=== PATIENT | female | born 1990 | race African-American/Black ===

== ENCOUNTER 2018-06-26 09:05 | Emergency (ER) | payer SELFPAY ==
[2018-06-26] MEDS ORDERED: Acetaminophen 325 MG TAB ONE (09:26)
[2018-06-26] MEDS ORDERED: Ibuprofen 200 MG TAB ONE (09:27)
--- NOTE | 2018-06-26 10:27 | RAD ---
LEFT GREAT TOE: Date: 06/26/18 HISTORY: Injury to toe. FINDINGS: There is an obliquely oriented interarticular fracture involving the lateral corner of the base of th e distal phalanx of the great toe. IMPRESSION: Nondisplaced obliquely oriented fracture of the lateral corner of the base of the distal phalanx of t he great toe. POS: BEL
== END 2018-06-26 10:31 | disposition home or self-care (01) ==
LOC: ERS 09:05
DX: S92.425A Nondisplaced fracture of distal phalanx of left great toe, initial encounter for closed fracture (principal); W22.01XA Walked into wall, initial encounter

== ENCOUNTER 2019-12-13 04:28 | Emergency (ER) | payer SELFPAY ==
[2019-12-13 04:56] LABS: Bilirubin Negative (Negative); Blood, Urine Negative (Negative); Clarity Clear (Clear); Glucose, Urine (Dipstick) Normal (Negative); Leukocyte Negative Leu/uL (Negative); Nitrite Negative (Negative); Protein, Urine (Dipstick) 10 mg/dL (Neg-Trace)
[2019-12-13 05:12] LABS: #Eosinphils 0.1 thou/uL (0.0-0.7); #Lymphocytes 2.2 thou/uL (1.20-3.40); #Monocytes 0.6 thou/uL (0.11-0.59); #Neutrophils 6.2 thou/uL (1.40-6.50); %Basophils 0.4 % (0.0-1.0); %Eosinophils 0.7 % (0.0-10.0); %Lymphocytes 24.2 % (21.0-51.0); %Monocytes 6.5 % (0.0-10.0); %Neutrophils 68.2 % (42.0-75.0); Hemoglobin 11.2 g/dL (12.0-16.0); Mean Corpuscular HGB CONC 33.1 g/dL (32.0-36.0); Mean Corpuscular Hemoglobin 28.2 pg (27.0-31.0); Mean Corpuscular Volume 85.4 fL (78.0-98.0); Platelet Count 208 thou/uL (130-400); RBC Distribution Width 12.3 % (11.5-14.5); Red Blood Cell (RBC) Count 3.98 mill/uL (4.20-5.40); White Blood Cell (WBC) Count 9.1 thou/uL (4.8-10.8)
[2019-12-13 05:35] LABS: ALT (SGPT) 18 U/L (8-55); AST (SGOT) 16 U/L (5-34); Albumin 3.7 g/dL (3.5-5.0); Alkaline Phosphatase 62 U/L (40-110); Anion Gap 9 mmol/L (10-20); BUN (Urea Nitrogen) 10 mg/dL (7.0-18.7); Bilirubin, Total 0.2 mg/dL (0.2-1.2); Calc. Creatinine Clearance 0 mL/min (70-130); Calcium 8.7 mg/dL (7.8-10.44); Carbon Dioxide 25 mmol/L (22-29); Chloride 106 mmol/L (98-107); Estimated GFR-MDRD Greater than 90; Glucose 96 mg/dL (70-105); Potassium 3.4 mmol/L (3.5-5.1); Protein, Total 6.7 g/dL (6.0-8.3); Sodium 137 mmol/L (136-145)
[2019-12-13 05:39] LABS: BHCG - Serum POSITIVE (NEGATIVE); Pregs Control Background? CLEAR/WHITE (CLR/WHITE); Pregs Control Bar Appear? YES (CONTROL BAR)
--- NOTE | 2019-12-13 07:54 | ULT ---
PRELIMINARY REPORT/[facility]/AFTER HOURS PROCEDURE COMPLETE OBSTETRICAL ULTRASOUND <14 WEEKS: CLINICAL HISTORY: Pelvic pain. Six weeks preg. See notes on last image. Thanks. TECHNIQUE: Transvaginal imaging of the maternal pelvis and a <14 week gestation with image documentation. COMPARISON: None provided. FINDINGS: GESTATION: A CRL of 5.7 mm corresponds to 6 weeks 3 days with a heartbeat of 115 bpm. UTERUS: Unremarkable. No myometrial mass. Measures 8.3 x 4.0 x 4.8 cm. CERVIX: Closed. Unremarkable. OVARIES: The LEFT side measures 3.3 x 2.0 x 2.4 cm and the RIGHT side measures 6.0 x 3.2 x 5.1 cm. T o 4.9 x 2.8 cm heterogeneous RIGHT ovarian mass is noted suggesting a dermoid. FREE FLUID: No free fluid. IMPRESSION: Single viable intrauterine . No acute abnormality. Suspected RIGHT adnexal dermoid. ELECTRONICALLY SIGNED BY: Jose Neil MD Dec 13, 2019 5:47:32 AM CDT This report is intended for review by the ordering physician only, in accordance of law. If you recei ve this report in error, please call [facility] at [phone]. FINAL REPORT BY DR [facility] AFTER HOURS STUDY ULTRASOUND TRANSVAGINAL DOPPLER DUPLEX: HISTORY: A 18-year-old female with first trimester pelvic pain. FINDINGS: 1. Live first trimester intrauterine gestation. 2. Right adnexal dermoid. 3. Agree with preliminary report by [facility]. CODE QA Transcribed Date/Time: 12/13/2019 8:57 AM
== END 2019-12-13 06:02 | disposition home or self-care (01) ==
LOC: ERS 04:28
DX: O99.89 Other specified diseases and conditions complicating pregnancy, childbirth and the puerperium (principal); R10.30 Lower abdominal pain, unspecified; Z3A.01 Less than 8 weeks gestation of pregnancy
CPT/HCPCS: 36415; 76856; 80053; 81003; 84702; 84703; 85025; 86900; 86901

== ENCOUNTER 2019-12-30 13:10 | Emergency (ER) | payer MEDICAID | END 2019-12-30 14:48 | disposition home or self-care (01) | LOC: ERS 13:10 | DX: O99.89 Other specified diseases and conditions complicating pregnancy, childbirth and the puerperium (principal); R10.30 Lower abdominal pain, unspecified; Z3A.08 8 weeks gestation of pregnancy; X50.0XXA Overexertion from strenuous movement or load, initial encounter; Y99.0 Civilian activity done for income or pay | CPT/HCPCS: 99283 ==

== ENCOUNTER 2020-01-18 09:57 | Emergency (ER) | payer MEDICAID, OTHER | END 2020-01-18 11:27 | disposition home or self-care (01) | LOC: ERS 09:57 | DX: O99.89 Other specified diseases and conditions complicating pregnancy, childbirth and the puerperium (principal); R68.83 Chills (without fever); Z3A.08 8 weeks gestation of pregnancy | CPT/HCPCS: 99282 ==

== ENCOUNTER 2020-09-16 14:58 | Emergency (ER) | payer MEDICAID, OTHER ==
--- NOTE | 2020-09-16 16:03 | RAD ---
Chest AP view INDICATION: Chest pain COMPARISON: June 06, 2007 FINDINGS: Lungs: The lungs are clear Cardiac silhouette: The cardiomediastinal silhouette appears within normal limits. Pulmonary vasculature: Normal Pleural spaces: No pleural effusion or pneumothorax is demonstrated. Upper abdomen: No abnormality seen. Osseous structures: No acute osseous abnormality. Additional findings: None. IMPRESSION: No acute cardiopulmonary abnormality.
[2020-09-16 16:07] LABS: #Basophils 0.1 thou/uL (0.0-0.2); #Eosinphils 0.1 thou/uL (0.0-0.7); #Lymphocytes 1.7 thou/uL (1.20-3.40); #Monocytes 0.3 thou/uL (0.11-0.59); #Neutrophils 3.7 thou/uL (1.40-6.50); %Basophils 1.1 % (0.0-1.0); %Eosinophils 2.4 % (0.0-10.0); %Lymphocytes 29.4 % (21.0-51.0); %Monocytes 4.4 % (0.0-10.0); %Neutrophils 62.7 % (42.0-75.0); Hemoglobin 11.9 g/dL (12.0-16.0); Mean Corpuscular HGB CONC 31.9 g/dL (32.0-36.0); Mean Corpuscular Hemoglobin 27.7 pg (27.0-31.0); Mean Corpuscular Volume 86.9 fL (78.0-98.0); Mean Platelet Volume 7.1 fL (7.4-10.4); Platelet Count 236 thou/uL (130-400); RBC Distribution Width 12.1 % (11.5-14.5); Red Blood Cell (RBC) Count 4.29 mill/uL (4.20-5.40); White Blood Cell (WBC) Count 5.9 thou/uL (4.8-10.8)
[2020-09-16 16:28] LABS: ALT (SGPT) 27 U/L (8-55); AST (SGOT) 19 U/L (5-34); Albumin 3.9 g/dL (3.5-5.0); Alkaline Phosphatase 63 U/L (40-110); Anion Gap 14 mmol/L (10-20); BUN (Urea Nitrogen) 9 mg/dL (7.0-18.7); Bilirubin, Total 0.4 mg/dL (0.2-1.2); Calc. Creatinine Clearance 0 mL/min (70-130); Calcium 8.9 mg/dL (7.8-10.44); Carbon Dioxide 25 mmol/L (22-29); Chloride 106 mmol/L (98-107); Globulin 3.6 g/dL (2.4-3.5); Glucose 93 mg/dL (70-105); Potassium 4.1 mmol/L (3.5-5.1); Protein, Total 7.5 g/dL (6.0-8.3); Sodium 141 mmol/L (136-145)
== END 2020-09-16 18:30 | disposition home or self-care (01) ==
LOC: ERS 14:58
DX: D64.9 Anemia, unspecified (principal); R07.89 Other chest pain
CPT/HCPCS: 36415; 71045; 80053; 84484; 85025; 85379; 93005

== ENCOUNTER 2020-10-28 09:53 | Emergency (ER) | payer MEDICAID, OTHER ==
[2020-10-28] MEDS ORDERED: diphenhydrAMINE 50 MG/ML VIAL ONE ×3 (11:03→11:27)
[2020-10-28] MEDS ORDERED: Ketorolac Tromethamine 30 MG/ML VIAL ONE ×2 (11:03→11:16)
[2020-10-28] MEDS ORDERED: Metoclopramide HCl 10 MG/2 ML VIAL ONE ×2 (11:03→11:16)
== END 2020-10-28 11:45 | disposition home or self-care (01) ==
LOC: ERS 09:53
DX: R51.9 Headache, unspecified (principal)
CPT/HCPCS: 96374; 96375; J1200; J1885; J2765

== ENCOUNTER 2021-03-05 09:57 | Emergency (ER) | payer OTHER ==
[2021-03-05] MEDS ORDERED: Ketorolac Tromethamine 30 MG/ML VIAL ONE (10:17)
[2021-03-05] MEDS ORDERED: HYDROcodone/Acetaminophen 7.5/325 mg Tablet ONE (10:17)
== END 2021-03-05 10:45 | disposition home or self-care (01) ==
LOC: ERS 09:57
DX: K02.9 Dental caries, unspecified (principal); K04.7 Periapical abscess without sinus
CPT/HCPCS: 96372; 99283; J1885

== ENCOUNTER 2022-03-12 08:39 | Outpatient (CLI) | payer OTHER | END 2022-03-12 08:40 | disposition home or self-care (01) | LOC: BICULT 08:39 | PROVIDERS: ATTEND Nurse Practitioner Women's Health | DX: Z34.03 Encounter for supervision of normal first pregnancy, third trimester (principal); Z3A.35 35 weeks gestation of pregnancy | CPT/HCPCS: 76805 ==

== ENCOUNTER 2023-08-05 20:06 | Emergency (ER) | payer OTHER, SELFPAY ==
[2023-08-05 20:47] LABS: #Eosinphils 0.1 thou/uL (0.0-0.7); #Monocytes 0.5 thou/uL (0.11-0.59); %Basophils 0.4 % (0.0-1.0); %Eosinophils 1.8 % (0.0-10.0); %Lymphocytes 18.6 % (21.0-51.0); Hematocrit 38.2 % (36.0-47.0); Mean Corpuscular HGB CONC 31.4 g/dL (32.0-36.0); Mean Corpuscular Hemoglobin 26.3 pg (27.0-31.0); Mean Corpuscular Volume 83.6 fl (78.0-98.0); Mean Platelet Volume 9.2 fL (7.4-10.4); Platelet Count 223 10x3/uL (130-400); RBC Distribution Width 14.4 % (11.5-14.5); Red Blood Cell (RBC) Count 4.57 mill/uL (4.20-5.40); White Blood Cell (WBC) Count 5.6 10x3/uL (4.8-10.8)
[2023-08-05] MEDS ORDERED: Ketorolac Tromethamine 30 MG/ML VIAL ONE (21:06)
[2023-08-05 21:10] LABS: ALT (SGPT) 26 U/L (8-55); AST (SGOT) 21 U/L (5-34); Albumin 4.6 g/dL (3.5-5.0); Alkaline Phosphatase 73 U/L (40-110); Anion Gap 13 mmol/L (10-20); BUN (Urea Nitrogen) 8 mg/dL (7.0-18.7); Bilirubin, Total 0.3 mg/dL (0.2-1.2); Calc. Creatinine Clearance 0 mL/min (70-130); Calcium 9.4 mg/dL (7.8-10.44); Carbon Dioxide 24 mmol/L (22-29); Chloride 103 mmol/L (98-107); Estimated GFR 92; Globulin 2.9 g/dL (2.4-3.5); Glucose 94 mg/dL (70-105); Potassium 3.8 mmol/L (3.5-5.1); Protein, Total 7.5 g/dL (6.0-8.3); Sodium 136 mmol/L (136-145)
[2023-08-05 21:14] LABS: Troponin I Less than 0.010 ng/mL (< 0.028)
== END 2023-08-05 22:04 | disposition home or self-care (01) ==
LOC: ERS 20:06
DX: R07.89 Other chest pain (principal); H10.9 Unspecified conjunctivitis
CPT/HCPCS: 36415; 71045; 80053; 84484; 85025; 93005; 94760; 96374; J1885

== ENCOUNTER 2023-08-30 12:20 | Emergency (ER) | payer SELFPAY ==
[~2023-08-30 12:20] MED LIST: Iopamidol-370 76% 500 ML MDV (1 ML CHARGE) ONE
[2023-08-30 12:52] LABS: #Eosinphils 0.1 thou/uL (0.0-0.7); #Monocytes 0.3 thou/uL (0.11-0.59); #Neutrophils 3.3 thou/uL (1.40-6.50); %Basophils 0.5 % (0.0-1.0); %Eosinophils 1.4 % (0.0-10.0); %Lymphocytes 15.7 % (21.0-51.0); %Monocytes 6.3 % (0.0-10.0); %Neutrophils 75.9 % (42.0-75.0); Hematocrit 37.4 % (36.0-47.0); Hemoglobin 12.2 g/dL (12.0-16.0); Mean Corpuscular HGB CONC 32.6 g/dL (32.0-36.0); Mean Corpuscular Hemoglobin 26.5 pg (27.0-31.0); Mean Corpuscular Volume 81.3 fl (78.0-98.0); Mean Platelet Volume 9.3 fL (7.4-10.4); Platelet Count 202 10x3/uL (130-400); RBC Distribution Width 14.1 % (11.5-14.5); White Blood Cell (WBC) Count 4.3 10x3/uL (4.8-10.8)
[2023-08-30 13:14] LABS: ALT (SGPT) 21 U/L (8-55); AST (SGOT) 22 U/L (5-34); Alkaline Phosphatase 70 U/L (40-110); Anion Gap 12 mmol/L (10-20); BUN (Urea Nitrogen) 8 mg/dL (7.0-18.7); Bilirubin, Total 0.8 mg/dL (0.2-1.2); Calc. Creatinine Clearance 0 mL/min (70-130); Calcium 8.7 mg/dL (7.8-10.44); Carbon Dioxide 23 mmol/L (22-29); Chloride 102 mmol/L (98-107); Estimated GFR 94; Globulin 3.4 g/dL (2.4-3.5); Glucose 130 mg/dL (70-105); Potassium 3.4 mmol/L (3.5-5.1); Protein, Total 7.4 g/dL (6.0-8.3); Sodium 134 mmol/L (136-145)
[2023-08-30 13:21] LABS: BHCG - Serum Negative (NEGATIVE)
[2023-08-30 13:22] LABS: Pregs Control Background? CLEAR/WHITE (CLR/WHITE); Pregs Control Bar Appear? YES (CONTROL BAR)
[2023-08-30] MEDS ORDERED: Ketorolac Tromethamine 30 MG/ML VIAL ONE (13:52)
[2023-08-30] MEDS ORDERED: Dexamethasone 10 MG/ML VIAL ONE (14:18)
== END 2023-08-30 15:02 ==
LOC: ERS 12:20
DX: K11.20 Sialoadenitis, unspecified (principal)
CPT/HCPCS: 70491; 80053; 84703; 85025; 96374; J1100; J1885; Q9967

== ENCOUNTER 2024-09-20 10:09 | Emergency (ER) | payer OTHER, SELFPAY ==
[2024-09-20 11:49] LABS: #Basophils Less than 0.03 10x3/uL (0.0-0.2); %Basophils 0.2 % (0.0-1.0); %Eosinophils 2.4 % (0.0-10.0); %Lymphocytes 10.9 % (21.0-51.0); %Monocytes 8.4 % (0.0-10.0); %Neutrophils 77.7 % (42.0-75.0); Hematocrit 35.7 % (36.0-47.0); Hemoglobin 11.8 g/dL (12.0-16.0); Mean Corpuscular HGB CONC 33.1 g/dL (32.0-36.0); Mean Corpuscular Volume 84.6 fL (78.0-98.0); Mean Platelet Volume 9.3 fL (7.4-10.4); Platelet Count 142 10x3/uL (130-400); RBC Distribution Width 13.1 % (11.5-14.5); Red Blood Cell (RBC) Count 4.22 mill/uL (4.20-5.40)
[2024-09-20] MEDS ORDERED: diphenhydrAMINE 50 MG/ML VIAL ONE (12:03)
[2024-09-20] MEDS ORDERED: Metoclopramide HCl 10 MG (2 mL) VIAL ONE (12:04)
[2024-09-20] MEDS ORDERED: Ketorolac Tromethamine 30 MG (1 mL) VIAL ONE (12:04)
[2024-09-20 12:05] LABS: ALT (SGPT) 19 U/L (8-55); AST (SGOT) 20 U/L (5-34); Albumin 3.6 g/dL (3.5-5.0); Alkaline Phosphatase 54 U/L (40-110); Anion Gap 11 mmol/L (10-20); BUN (Urea Nitrogen) 9 mg/dL (7.0-18.7); Bilirubin, Total 0.3 mg/dL (0.2-1.2); Calc. Creatinine Clearance 0 mL/min (70-130); Calcium 8.6 mg/dL (7.8-10.44); Carbon Dioxide 22 mmol/L (22-29); Chloride 107 mmol/L (98-107); Estimated GFR 111; Globulin 3.6 g/dL (2.4-3.5); Glucose 97 mg/dL (70-105); Potassium 3.9 mmol/L (3.5-5.1); Protein, Total 7.2 g/dL (6.0-8.3); Sodium 136 mmol/L (136-145)
[2024-09-20 12:10] LABS: Troponin I Less than 0.010 ng/mL (< 0.028)
[2024-09-20 13:31] LABS: Bacteria/HPF None Seen HPF (None Seen); Bilirubin Negative (Negative); Blood, Urine Negative (Negative); CAUTI Indications for Culture Fever or rigors; Clarity Turbid (Clear); Glucose, Urine (Dipstick) Normal (Negative); Ketone, Urine 20 mg/dL (Negative); Leukocyte 250 Leu/uL (Negative); Nitrite Negative (Negative); Protein, Urine (Dipstick) 50 mg/dL (Neg-Trace); RBC/HPF 0-3 HPF (0-3); Specific Gravity, Urine 1.036 (1.002-1.036); pH, Urine 6.5 (5.0-9.0)
[2024-09-20 13:40] LABS: Urine Culture Reflex No No
== END 2024-09-20 14:36 | disposition home or self-care (01) ==
LOC: ERS 10:09
DX: B34.9 Viral infection, unspecified (principal); Z55.0 Illiteracy and low-level literacy
CPT/HCPCS: 36415; 71045; 80053; 81001; 84484; 85025; 93005; J1200; J1885; J2765